=== PATIENT | female | born 1930 | race Caucasian/White ===

== ENCOUNTER 2016-12-30 09:57 | Emergency (ER) | payer MEDICARE ==
[~2016-12-30] VITALS: Ht 165.1 cm; Wt 65.3 kg
--- OUTSIDE RECORDS SUMMARY | ~2016-12-30 | XMS ---
Demographics + + + | Address | [address] | | | [address] | | | [place] [address] | + + + | Preferred Language | Unknown | + + + | Marital Status | Unknown | + + + | Hinduism Affiliation | Unknown | + + + | Race | Unknown | + + + | Ethnic Group | Unknown | + + + Author + + + | Author | [facility] | + + + | Organization | [facility] | + + + | Address | 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 | | | | | of | | | | | | | | descending | | | | | | | | colon | | | | | | + + + + + + + + | Problem | Personal | Z85.3 | | | Active | [id number] | | | history of | | | | | | | | breast | | | | | | | | cancer | | | | | | + + + + + + + + | 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, | 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, | | | 2016 | | | | | acute | | | | | | + + + + + + + + | Assessment | Need for | Z23 | | 18 October, | Active | [id number] | | | vaccinatio | | | 2016 | | | | | n | | | | | | + + + + + + + + | Assessment | Leg cramps | R25.2 | | 12 November, | Active | [id number] | | | | | | 2016 | | | + + + + + + + + | Assessment | Aneurysm | I72.9 | | 18 October, | Active | [id number] | | | | | | 2016 | | | + + + + + + + + | Assessment | Functional | | K59.1 | 18 October, | Active | 87098981 | | | diarrhea | | | 2016 | | | + + + + + + + + | 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 | | | Active | [id number] | | | infarct, | | | | | | | | acute | | | | | | + + + + + + + + | 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 | | | Active | 93272922 | | | ve | | | | | | | | 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 | | | | | | | | cardiovasc | | | | | | | | ular | | | | | | | | disease | | | | | | + + + + + + + + | 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.0 | | | Active | [id number] | | | sclerosus | | | | | | + + + + + + + + | Problem | Depression | | F41.8 | | Active | [id number] | | | with | | | | | | | | anxiety | | | | | | + + + + + + + + | Problem | 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 | | Active | [id number] | | | hyperlipid | | | | | | | | emia | | | | | | + + + + + + + + | Problem | Stage 3 | N18.3 | | | Active | [id number] | | | chronic | | | | | | | | kidney | | | | | | | | disease | | | | | | + + + + + + + + ALLERGIES + + + + +--------+ | Substance | Reaction | Event Type | Date | Status | + + + + +--------+ | Statins | liver enz | Drug Allergy | October, | Active | | | abnormality | | | | + + + + +--------+ SOCIAL HISTORY No smoking Hx information available PLAN OF CARE + +---------+ | Activity | Details | + +---------+ +---+ | | +---+ + + + | Pending Test | MRA: Brain | + + + | | prn, 2 Months,Reason: | + + + VITAL SIGNS + + + + | Height | 66 in | 2016-11-12 | + + + + | Weight | 150.6 lbs | 2016-11-12 | + + + + | BMI | 24.30 kg/m2 | 2016-11-12 | + + + + | Temperature | 97.6 degrees Fahrenheit | 2016-11-12 | + + + + | Heart Rate | 69 /min | 2016-11-12 | + + + + | Blood pressure systolic | 140 mm Hg | 2016-11-12 | + + + + | Blood pressure diastolic | 60 mm Hg | 2016-11-12 | + + + + MEDICATIONS + [...] + + + + + +--------+ | Fenofibr | Orally | 1/2 | 24h | | | | Active | | ate 160 | Once a | tablet | | | | | | | MG | day | | | | | | | + + + + + + + +--------+ | Vitamin | | | | | | | Active | | C 500 MG | | | | | | | | + + + + + + + +--------+ | Calcium | Orally | 1/2 | 24h | | | | Active | | 630 mg | daily | tablet | | | | | | | | | with | | | | | | | | | meals | | | | | | + + + + + + + +--------+ | Aspirin | Orally | 1 tablet | 24h | | | | Active | | 325 MG | Once a | | | | | | | | | day | | [...] | + + + + + | TDAP >7, IM | November 12, 2016 | | | + + + + + | IMMUNIZATION ADMIN | November 12, 2016 | | | + + + + + | Moderate | November 12, 2016 | | | + + + + + IMMUNIZATIONS + + + + + | Vaccine | Route | Administration Date | Status | + + + + + | TDAP >7, IM | IM Intramuscular | November 12, 2016 | Administered | + + + + +"
--- OUTSIDE RECORDS SUMMARY | ~2016-12-30 | XMS ---
Demographics + + + | Address | [address] | | | [address] | | | [place] [address] | + + + | Preferred Language | Unknown | + + + | Marital Status | Unknown | + + + | Latter Day Affiliation | Unknown | + + + | Race | Unknown | + + + | Ethnic Group | Unknown | + + + Author + + + | Author | [facility] | + + + | Organization | [facility] | + + + | Address | 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 | | | Active | [id number] | | | infarct, | | | | | | | | acute | | | | | | +---------+ + + +--------+ + + | 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 | | | Active | [id number] | | | ve | | | [...] | L90.0 | | | Active | [id number] | | | sclerosus | | | | | | +---------+ + + +--------+ + + | Problem | Depression | | F41.8 | | Active | [id number] | | | with | | | | | | | | anxiety | | | | | | +---------+ + + +--------+ + + | Problem | 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 | | Active | [id number] | | | hyperlipid | | | | | | | | emia | | | | | | +---------+ + + +--------+ + + | Problem | Stage 3 | N18.3 | | | Active | [id number] | | | chronic | | | | | | | | kidney | | | | | | | | disease | | | | | | +---------+ + + +--------+ + + ALLERGIES No Known Allergies SOCIAL HISTORY No smoking Hx information available PLAN OF CARE VITAL SIGNS MEDICATIONS No Known Medications RESULTS No Results PROCEDURES No Known procedures IMMUNIZATIONS No Known Immunizations"
[~2016-12-30 09:57] MED LIST: ANASTROZOLE1 MG PO; ASPIRIN EC81 MG PO; CHOLESTYRAMINE P4 GM PO; CITALOPRAM HBR10 MG PO; CITALOPRAM HBR20 MG PO; FENOFIBRATE160 MG PO; FLAGYL250 MG PO; HYDROCODON-ACE1 EA10 PO; LABETALOL HCL100 MG PO; LORAZEPAM1 MG PO; NEOMYCIN SULFA500 MG PO; NICOTINE PATCH1 EAC1 TD; VITAMIN D-32000 UNIT PO; VITAMIN E100 UNI3 PO
[2016-12-30] MEDS ORDERED: MAGNESIUM200 MG PO (10:09)
[2016-12-30] MEDS ORDERED: ASPIR-TRIN325 MG PO (10:11)
[2017-04-12] MEDS ORDERED: ASPIRIN-DIPYRI1 EACH PO (13:27)
== END 2016-12-30 12:19 | disposition home or self-care (01) ==
LOC: ED 09:57
DX: G45.9 Transient cerebral ischemic attack, unspecified (principal); I10 Essential (primary) hypertension; E78.5 Hyperlipidemia, unspecified; F41.9 Anxiety disorder, unspecified; C50.919 Malignant neoplasm of unspecified site of unspecified female breast; C18.9 Malignant neoplasm of colon, unspecified; Z87.891 Personal history of nicotine dependence; Z90.49 Acquired absence of other specified parts of digestive tract; Z79.899 Other long term (current) drug therapy; Z79.82 Long term (current) use of aspirin
CPT/HCPCS: 70450; 71010; 80053; 84484; 85025; 85610; 85730; 99284

== ENCOUNTER 2017-01-08 03:42 | Emergency (ER) | payer MEDICARE, OTHER ==
[~2017-01-08] VITALS: Ht 165.1 cm; Wt 61.2 kg
--- OUTSIDE RECORDS SUMMARY | ~2017-01-08 | XMS ---
Demographics + + + | Address | [address] | | | [address] | | | [place] [address] | + + + | Preferred Language | Unknown | + + + | Marital Status | Unknown | + + + | Nondenominational Affiliation | Unknown | + + + | Race | Unknown | + + + | Ethnic Group | Unknown | + + + Author + + + | Author | [facility] | + + + | Organization | [facility] | + + + | Address | 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 | | | Active | [id number] | | | infarct, | | | | | | | | acute | | | | | | +---------+ + + +--------+ + + | 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 | | | Active | 26409688 | | | ve | | | | | | | | 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 | | | | | | | | cardiovasc | | | | | | | | ular | | | | | | | | disease | | | | | | +---------+ + + +--------+ + + | 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.0 | | | Active | [id number] | | | sclerosus | | | | | | +---------+ + + +--------+ + + | Problem | Depression | | F41.8 | | Active | [id number] | | | with | | | | | | | | anxiety | | | | | | +---------+ + + +--------+ + + | Problem | 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 | | Active | 534507207 | | | hyperlipid | | | | | | | | emia | | | | | | +---------+ + + +--------+ + + | Problem | Stage 3 | N18.3 | | | Active | [id number] | | | chronic | | | | | | | | kidney | | | | | | | | disease | | | | | | +---------+ + + +--------+ + + ALLERGIES Unknown Allergies SOCIAL HISTORY No smoking Hx information available PLAN OF CARE VITAL SIGNS MEDICATIONS Unknown Medications RESULTS No Results PROCEDURES No Known procedures IMMUNIZATIONS No Known Immunizations"
--- OUTSIDE RECORDS SUMMARY | ~2017-01-08 | XMS ---
Demographics + + + | Address | [address] | | | [address] | | | [place] [address] | + + + | Preferred Language | Unknown | + + + | Marital Status | Unknown | + + + | Confucianist Affiliation | Unknown | + + + | Race | Unknown | + + + | Ethnic Group | Unknown | + + + Author + + + | Author | [facility] | + + + | Organization | [facility] | + + + | Address | 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 | | | Active | [id number] | | | infarct, | | | | | | | | acute | | | | | | +---------+ + + +--------+ + + | 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 | | | Active | 37271351 | | | ve | | | [...] | L90.0 | | | Active | 99112742 | | | sclerosus | | | | | | +---------+ + + +--------+ + + | Problem | Depression | | F41.8 | | Active | [id number] | | | with | | | | | | | | anxiety | | | | | | +---------+ + + +--------+ + + | Problem | 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 | | Active | [id number] | | | hyperlipid | | | | | | | | emia | | | | | | +---------+ + + +--------+ + + | Problem | Stage 3 | N18.3 | | | Active | [id number] | | | chronic | | | | | | | | kidney | | | | | | | | disease | | | | | | +---------+ + + +--------+ + + ALLERGIES + + + + +--------+ | Substance | Reaction | Event Type | Date | Status | + + + + +--------+ | Statins | liver enz | Drug Allergy | Dec, | Active | | | abnormality | | | | + + + + +--------+ SOCIAL HISTORY No smoking Hx information available PLAN OF CARE + +---------+ | Activity | Details | + +---------+ +---+ | | +---+ + + + | Follow Up | 2 Weeks Reason:null | + + + | Pending Test | Lipid Profile | + + + | Pending Test | AST (SGOT) | + + + VITAL SIGNS + + + + | Height | 66 in | 2016-12-31 | + + + + | Weight | 149.6 lbs | 2016-12-31 | + + + + | BMI | 24.14 kg/m2 | 2016-12-31 | + + + + | Heart Rate | 54 /min | 2016-12-31 | + + + + | Blood pressure systolic | 123 mm Hg | 2016-12-31 | + + + + | Blood pressure diastolic | 52 mm Hg | 2016-12-31 | + + + + MEDICATIONS + + + + + + + +--------+ | Medicati | Instruct | Dosage | Frequenc | Start | End Date | Duration | Status | | on | ions | | y | Date | | | | + + + + + + + +--------+ | Citalopr | Orally | 1 tablet | 24h | | | | Active | | am | qd | | | | | | | | Hydrobro | | | | | | | | | mide 20 | | | | | | | | | MG | | | | | | | | + + + + + + + +--------+ | Aggrenox | Orally | 1 | 12h | Dec, | | 30 | Active | | 25-200 | Twice a | capsule | | 2017 | | day(s) | | | MG | day | | | | | | | + + + + + + + +--------+ | Pravacho | Orally | 1 tablet | 24h | 06 Dec, | | 30 | Active | | l 20 MG | Once a | | | 2017 | | day(s) | | | | day | | | | | | | + + + + + + + +--------+ | Cholesty | Orally | 1 packet | 12h | 28 Dec, | | | Active | | ramine 4 | Twice a | mixed | | 2015 | | | | | GM | day | with | | | | | | | | | water or | | | | | | | | | | | | | | | | | | non-carb | | | | | | | | | onated | | | | | | | | | drink | | | | | | + + + + + + + +--------+ | Labetalo | Orally | 1 tablet | 12h | | | | Active | | l HCl | Twice a | | | | | | | | 100 MG | day | | | | | | | + + + + + + + +--------+ | Tylenol | Orally | 1 | | | | | Active | | Extra | with | tablets | | | | | | | Strength | headache | as | | | | | | | 500 mg | | needed | | | | | | + + + + + + + +--------+ | Calcium- | | | | | | | Active | | Magnesiu | | | | | | | | | m-Zinc-D | | | | | | | | | 3 - | | | | | | | | + + + + + + + +--------+ | Potassiu | Orally | 1 tab | 24h | | | | Active | | m 99 MG | daily | | | | | | | + + + + + + + +--------+ | Vitamin | | | | | | | Active | | C 500 MG | | | | | | | | + + + + + + + +--------+ RESULTS No Results PROCEDURES + + + + + | Procedure | Date Ordered | Related Diagnosis | Body Site | + + + + + | Office Visit, Est | December 31, 2016 | | | | Pt., Level 3 | | | | + + + + + IMMUNIZATIONS No Known Immunizations"
[~2017-01-08 03:42] MED LIST changes: +ASPIR-TRIN325 MG PO; +MAGNESIUM200 MG PO
[2017-01-08] MEDS ORDERED: CALCIUM MAGNES1 EAC2 PO (04:01)
[2017-01-08] MEDS ORDERED: PRAVASTATIN SOD20 MG (04:09)
[2017-01-08] MEDS ORDERED: VITAMIN C500 M1 PO (05:07)
[2017-04-12] MEDS ORDERED: ASPIRIN-DIPYRI1 EACH PO (13:27)
== END 2017-01-08 05:20 | disposition home or self-care (01) ==
LOC: ED 03:42
DX: R51 Headache (principal); I10 Essential (primary) hypertension; E78.5 Hyperlipidemia, unspecified; F31.9 Bipolar disorder, unspecified; Z85.3 Personal history of malignant neoplasm of breast; Z85.038 Personal history of other malignant neoplasm of large intestine; Z87.891 Personal history of nicotine dependence; Z90.49 Acquired absence of other specified parts of digestive tract; Z90.12 Acquired absence of left breast and nipple; Z79.899 Other long term (current) drug therapy
CPT/HCPCS: 70450; 99284

== ENCOUNTER 2017-12-08 02:08 | Emergency (ER) | payer MEDICARE, OTHER ==
[~2017-12-08] VITALS: Ht 165.1 cm; Wt 61.2 kg
[~2017-12-08 02:08] MED LIST changes: +ASPIRIN-DIPYRI1 EACH PO; +CALCIUM MAGNES1 EAC2 PO; +PRAVASTATIN SOD20 MG; +VITAMIN C500 M1 PO
[2017-12-08] MEDS ORDERED: K-TAB ER20 MEQ PO (02:22)
== END 2017-12-08 07:55 | disposition home or self-care (01) ==
LOC: ED 02:08
DX: R51 Headache (principal); I10 Essential (primary) hypertension; Z79.82 Long term (current) use of aspirin; Z79.899 Other long term (current) drug therapy
CPT/HCPCS: 70450; 80053; 84484; 85025; 96374; 96375; 99284; J2270; J2405